=== PATIENT | male | born 1980 | race Caucasian/White ===

== ENCOUNTER 2020-01-28 19:29 | Emergency (ER) | payer OTHER, SELFPAY ==
[2020-01-28] MEDS ORDERED: Meclizine HCl 25 MG TAB ONE (20:49)
== END 2020-01-28 21:30 | disposition home or self-care (01) ==
LOC: MADERS 19:29
DX: H81.10 Benign paroxysmal vertigo, unspecified ear (principal); E11.9 Type 2 diabetes mellitus without complications; I10 Essential (primary) hypertension
CPT/HCPCS: 36416; 99283

== ENCOUNTER 2022-07-09 18:19 | Emergency (ER) | payer SELFPAY ==
[2022-07-09] MEDS ORDERED: Lidocaine 1% (PF) 30 ML VIAL ONE (19:18)
[2022-07-09] MEDS ORDERED: Sulfameth/Trimethoprim DS 800-160mg TAB ONE (20:27)
[2022-07-09] MEDS ORDERED: Cephalexin 500 MG CAP ONE (20:27)
[2022-07-09] MEDS ORDERED: Acetaminophen 500 MG TAB ONE (20:27)
== END 2022-07-09 20:50 | disposition home or self-care (01) ==
LOC: MADERS 18:19
DX: A41.9 Sepsis, unspecified organism (principal); L02.31 Cutaneous abscess of buttock; L03.317 Cellulitis of buttock; I10 Essential (primary) hypertension; E11.65 Type 2 diabetes mellitus with hyperglycemia; E11.9 Type 2 diabetes mellitus without complications; F17.210 Nicotine dependence, cigarettes, uncomplicated
CPT/HCPCS: 10060; 36416; 87070; 87205; J2001

== ENCOUNTER 2022-07-13 16:02 | Emergency (ER) | payer SELFPAY | END 2022-07-13 17:45 | disposition home or self-care (01) | LOC: MADERS 16:02 | DX: Z48.817 Encounter for surgical aftercare following surgery on the skin and subcutaneous tissue (principal); E11.9 Type 2 diabetes mellitus without complications; I10 Essential (primary) hypertension; F17.210 Nicotine dependence, cigarettes, uncomplicated; Z79.899 Other long term (current) drug therapy | CPT/HCPCS: 99282 ==

== ENCOUNTER 2022-07-15 18:08 | Emergency (ER) | payer SELFPAY | END 2022-07-15 19:21 | disposition home or self-care (01) | LOC: MADERS 18:08 | DX: Z48.00 Encounter for change or removal of nonsurgical wound dressing (principal); E11.9 Type 2 diabetes mellitus without complications; I10 Essential (primary) hypertension; F17.210 Nicotine dependence, cigarettes, uncomplicated; Z79.899 Other long term (current) drug therapy | CPT/HCPCS: 99282 ==

== ENCOUNTER 2024-10-10 16:28 | Emergency (ER) | payer SELFPAY ==
[2024-10-10] MEDS ORDERED: Dexamethasone 10 MG/ML VIAL ONE (16:52)
[2024-10-10] MEDS ORDERED: Amoxicillin/Potassium Clav 875 MG TAB ONE (16:53)
[2024-10-10] MEDS ORDERED: Acetaminophen 500 MG TAB ONE (16:53)
[2024-10-10] MEDS ORDERED: Ibuprofen 600 MG TAB ONE (16:53)
== END 2024-10-10 17:07 | disposition home or self-care (01) ==
LOC: MADERS 16:28
DX: H66.41 Suppurative otitis media, unspecified, right ear (principal); R59.0 Localized enlarged lymph nodes; E11.9 Type 2 diabetes mellitus without complications; I10 Essential (primary) hypertension; F17.210 Nicotine dependence, cigarettes, uncomplicated
CPT/HCPCS: 96372; 99283; J1100

== ENCOUNTER 2025-07-07 18:58 | Emergency (ER) | payer SELFPAY ==
[2025-07-07] MEDS ORDERED: Amoxicillin/Potassium Clav 875 MG TAB ONE (19:30)
[2025-07-07] MEDS ORDERED: Lidocaine 1% (PF) 30 ML VIAL ONE (19:30)
== END 2025-07-07 19:59 | disposition home or self-care (01) ==
LOC: MADERS 18:58
DX: L02.31 Cutaneous abscess of buttock (principal); E11.9 Type 2 diabetes mellitus without complications; I10 Essential (primary) hypertension; F17.210 Nicotine dependence, cigarettes, uncomplicated
CPT/HCPCS: 10060; J2003

== ENCOUNTER 2025-07-27 09:27 | Emergency (ER) | payer SELFPAY ==
[2025-07-27] MEDS ORDERED: Lidocaine 1% w/Epinephrine 1:100K 20 ML VIAL ONE (09:39)
[2025-07-27] MEDS ORDERED: Sulfameth/Trimethoprim DS 800-160mg TAB ONE (10:28)
== END 2025-07-27 10:34 | disposition home or self-care (01) ==
LOC: MADERS 09:27
DX: L02.31 Cutaneous abscess of buttock (principal); E11.9 Type 2 diabetes mellitus without complications; I10 Essential (primary) hypertension; F17.210 Nicotine dependence, cigarettes, uncomplicated
CPT/HCPCS: 10060; 87070; 87205

== ENCOUNTER 2025-07-29 17:10 | Emergency (ER) | payer SELFPAY ==
[2025-07-29] MEDS ORDERED: Lidocaine 1% w/Epinephrine 1:100K 20 ML VIAL ONE (17:27)
== END 2025-07-29 18:12 | disposition home or self-care (01) ==
LOC: MADERS 17:10
DX: L02.31 Cutaneous abscess of buttock (principal); E66.9 Obesity, unspecified; E11.9 Type 2 diabetes mellitus without complications; I10 Essential (primary) hypertension; F17.210 Nicotine dependence, cigarettes, uncomplicated